=== PATIENT | female | born 2005 | race African-American/Black ===

== ENCOUNTER 2025-01-17 08:30 | Emergency (ER) | payer OTHER, SELFPAY ==
--- NOTE | ~2025-01-17 | XR_ITS ---
EXAMINATION: XR finger 2nd LT min 2V, 01/17/2025 8:45 CDT HISTORY: work injury, laceration on distal aspect of 2nd finger COMPARISON: No comparisons available. Findings: Displaced comminuted appearing fracture of the distal aspect distal phalanx. No significant degenerative changes. Soft tissues unremarkable. Impression: Fractures detailed above Reviewed, dictated and finalized at location P. Impression: Fractures detailed above
[2025-01-17 08:33] VITALS: BP 155/54; PULSE 84; RESP 16; TEMP 36.7; O2SAT 100
--- OUTSIDE RECORDS SUMMARY | 2025-01-17 08:51 | XMS_ITS | Clinical Summary ---
Author Organization [facility] Address [address] [place] [address] Care Team Providers Care Lock Maintenance Supervisor Name Role Phone None, Provider MD Primary Care Provider Unavaila ble Allergies No known active allergies Medications No known medications Social History Tobacco Use Types Packs/Day Years Used Date Smoking Tobacco: Never Smokeless Tobacco: Never Tobacco Cessation:Counseling Given: Not Answered Alcohol Use Standard Drinks/Week Comments Not Currently 0 (1 standard drink = 0.6 oz pur e alcohol) Comments Unknown Sex and Gender Information Value Date Recorded Sex Assigned at Female 08/23/2024 5:03 PM CDT Legal Sex Female 7:11 PM CDT Gender Identity Not on file Sexual Orientation Not on file Last Filed Vital Signs Vital Sign Reading Time Taken Comments Blood Pressure 124/80 08/23/2024 5:03 PM CDT Pulse 91 08/23/2024 5:03 PM CDT Temperature 36.6 C (97.8 F) 08/23/2024 5:03 PM CDT Respiratory Rate 16 08/23/2024 5:03 PM CDT Oxygen Saturation 100% 08/23/2024 5:03 PM CDT Inhaled Oxygen Concentration - - Weight 65.8 kg (145 lb) 08/23/2024 5:03 PM CDT Height 157.5 cm (5' 2) 08/23/2024 5:03 PM CDT Body Mass Index 26.52 08/23/2024 5:03 PM CDT Plan of Treatment Health Maintenance Due Date Last Done Comments Cervical Cancer Screening Pap Smear (Age 21 to 29) Every 3 Years 2003 Cervical Cancer Screening 2003 Annual Physical 12/19/2006 Meningococcal B Vaccine (2 of 2 - Bexsero SCDM 2-dose series) 10/29/2021 05/01/2021 Hepatitis C 12/19/2021 COVID-19 Vaccine ( season) 2024 Influenza Adult (#1) 2024 01/11/2008, 12/24/19 06 DTaP, Tdap and Td Vaccines (8 - Td or Tdap) 04/16/2033 04/16/2023, 12/24/2014, 01/11/2008, Additional history exists Hepatitis B Vaccines Completed 12/31/2004, 02/22/2004, 2003 Pneumococcal Vaccine: Pediatrics (0 to 5 Years) and At-Risk Patients (6 to 49 Years) Aged Out 03/18/2005, 07/02/2004, 04/22/2004, Additional history exists No longer eligible based on patient's age to complete this topic HPV Vaccines Completed 05/01/2021, 07/02/2015 Meningococcal Vaccine Completed 05/01/2021, 015 Hepatitis A Vaccines Aged Out No long er eligible based on patient's age to complete this topic RSV Immunizations Under 20 Months Aged Out No longer eligible based on patient's age to complete this topic Insurance MEDICAID [facility] Care Teams Lock Maintenance Supervisor Relationship Specialty Start Date End Date None, Provider, PCP - General UNKNOWN PHYSICIAN SPECIALTY 08/23/24
--- OUTSIDE RECORDS SUMMARY | 2025-01-17 08:51 | XMS_ITS | Clinical Summary ---
Author Organization [facility] Address [address] [place] [address] Care Team Providers Care Robot Programmer Name Role Phone Ericka Whalen MD, Robert Gannon Primary Care Provider Source Comments [facility],non-owned Affiliates and Associated Physician Practices is amultiple site organization consisting of ambulatory clinics and hospital sitesin [place], [place], [place] and [place]. This disclosure is being madepursuant to the Care Everywhere program and may not contain all information available regarding this patient. Last updated 17.[facility] [employer] Allergies No known active allergies Medications * Be aware that medications may not be up to date on this document. Alwaysverify current medications with the patient. vitamin D3-cholecalcifer ol (CHOLECACIFEROL) 1000 units tablet Take 1 tablet by mouth once daily 30 tablet 2 10/14/2018 Active Active Problems Problem Noted Date Diagnosed Date Numbness and tingling sensation of skin 10/08/19 19 Unilateral inguinal hernia 04/02/2011 Social History Tobacco Use Types Packs/Day Years Used Date Smoking Tobacco: Never Smokeless Tobacco: Never Comments No Sex and Gender Information Value Date Recorded Sex Assigned at Not on file Legal Sex Female 5:43 AM SHUTDOWN PLANNER Gender Identity Not on file Sexual Orientation Not on file Last Filed Vital Signs Vital Sign Reading Time Taken Comments Blood Pressure 112/68 10/07/2018 3:18 PM CDT Pulse 96 10/07/2018 3:18 PM CDT Temperature 36.6 C (97.8 F) 04/02/2011 1:16 PM SHUTDOWN PLANNER Respiratory Rate 17 10/07/2018 3:18 PM CDT Oxygen Saturation 100% 04/02/2011 2:00 PM SHUTDOWN PLANNER Inhaled Oxygen Concentration - - Weight 52 kg (114 lb 10.2 oz) 10/07/2018 3:18 P M CDT Height 156.3 cm (5' 1.54) 10/07/2018 3:18 PM CD T Body Mass Index 21.29 10/07/2018 3:18 PM CDT Plan of Treatment Health Maintenance Due Date Last Done Comments HIV SCREENING 12/19/2018 HPV VACCINE (1 - 3-dose series) 12/19/2018 CHLAMYDIA/GONORRHEA SCREENING 2019 MENINGOCOCCAL (Group B) VACC INE SHARED DECISION-MAKING (1 of 2 - Standard) 2019 HEPATITIS C SCREENING 12/15/2021 DTAP/TDAP/TD VACCINES (1 - Tdap) 12/19/2022 HEPATITIS B VACCINE (1 of 3 - 19+ 3-dose series) 12/19/2022 DEPRESSION SCREENING 03/22/2024 COVID-19 VACCINE (1 - 2023-2 5 season) 2024 INFLUENZA VACCINE (#1) 2024 ZOSTER VACCINE (1 of 2) 12/19/2053 HIB VACCINE Aged Out No longer eligi ble based on patient's age to complete this topic MENINGOCOCCAL GROUPS A/C/Y/W VACCINE Aged Out No longer eligible b ased on patient's age to complete this topic PNEUMOCOCCAL VACCINE Aged Out No long er eligible based on patient's age to complete this topic Insurance * Guarantor: LISETH WOLF Account Type Relation to Patient Date of Phone Billing Address Personal/Family [phone] (Home) [address] [place] [address] [facility] Care Teams Robot Programmer Relationship Specialty Start Date End Date Robert Barnett Jr., MD [address] [place], [place] [id number] PCP - General 03/10/11
--- OUTSIDE RECORDS SUMMARY | 2025-01-17 08:51 | XMS_ITS | Clinical Summary ---
Author Organization [facility] Address [address] [place] [address] Care Team Providers Care Perl Software Engineer Name Role Phone Rin Gayle MD Primary Care Provi luis Ericka Whalen MD, Robert T. Unavailable [phone] Allergies No known active allergies Medications cholecalciferol (VITAMIN D-3) 25 mcg (1,000 unit) tablet Take 1,000 Units by mouth daily 10/14/2018 Active Immunizations Immunization Administration Dates Next Due Tdap 04/16/2023 Surgical History Surgery Date Site/Laterality Comments NO PAST SURGERIES Medical History Medical History Date Comments No pertinent past medical history Family History Medical History Relation Name Comments No Known Problems Father No Known Problems Mother Relation Name Status Comments Father Mother Social History Tobacco Use Types Packs/Day Years Used Date Smoking Tobacco: Never Smokeless Tobacco: Never Alcohol Use Standard Drinks/Week Comments Never 0 (1 standard drink = 0.6 oz pur e alcohol) Personal Safety Answer Date Recorded Have you ever been in or are you currently in a harmful physical or emotional relationship or is someone making you feel afraid or unsafe? Denies 04/16/2023 Comments No Sex and Gender Information Value Date Recorded Sex Assigned at Not on file Legal Sex Female 2:47 AM POST ACUTE CARE NURSE PRACTITIONER Gender Identity Not on file Sexual Orientation Not on file Obstetrics History Last Filed Vital Signs Vital Sign Reading Time Taken Comments Blood Pressure 128/84 04/16/2023 6:34 PM POST ACUTE CARE NURSE PRACTITIONER Pulse 84 04/16/2023 6:34 PM POST ACUTE CARE NURSE PRACTITIONER Temperature 36.8 C (98.2 F) 04/16/2023 6:34 PM POST ACUTE CARE NURSE PRACTITIONER Respiratory Rate 18 04/16/2023 6:34 PM POST ACUTE CARE NURSE PRACTITIONER Oxygen Saturation 99% 04/16/2023 6:34 PM POST ACUTE CARE NURSE PRACTITIONER Inhaled Oxygen Concentration - - Weight 63.5 kg (139 lb 15.9 oz) 04/16/2023 6:34 PM POST ACUTE CARE NURSE PRACTITIONER Height 157.5 cm (5' 2) 04/16/2023 6:34 PM POST ACUTE CARE NURSE PRACTITIONER Body Mass Index 25.6 04/16/2023 6:34 PM POST ACUTE CARE NURSE PRACTITIONER Plan of Treatment Not on file Insurance [facility] Care Teams Perl Software Engineer Relationship Specialty Start Date End Date Rin Gayle MD [address] [address] PCP - General Pediatrics 09/26/19 Robert Barnett Jr., MD [address] [address] 09/26/19
--- OUTSIDE RECORDS SUMMARY | 2025-01-17 10:13 | XMS_ITS | Clinical Summary ---
Author Organization [facility] Address [address] [place] [address] Care Team Providers Care Gum Machine Filler Name Role Phone Rin Gayle MD Primary Care Provi luis Ericka Whalen MD, Robert T. Unavailable [phone] Allergies No known active allergies Medications cholecalciferol [...] on file Legal Sex Female 2:47 AM ENVIRONMENTAL HEALTH SAFETY MANAGER Gender Identity Not on file Sexual Orientation Not on file Obstetrics History Last Filed Vital Signs Vital Sign Reading Time Taken Comments Blood Pressure 128/84 04/16/2023 6:34 PM ENVIRONMENTAL HEALTH SAFETY MANAGER Pulse 84 04/16/2023 6:34 PM ENVIRONMENTAL HEALTH SAFETY MANAGER Temperature 36.8 C (98.2 F) 04/16/2023 6:34 PM ENVIRONMENTAL HEALTH SAFETY MANAGER Respiratory Rate 18 04/16/2023 6:34 PM ENVIRONMENTAL HEALTH SAFETY MANAGER Oxygen Saturation 99% 04/16/2023 6:34 PM ENVIRONMENTAL HEALTH SAFETY MANAGER Inhaled Oxygen Concentration - - Weight 63.5 kg (139 lb 15.9 oz) 04/16/2023 6:34 PM ENVIRONMENTAL HEALTH SAFETY MANAGER Height 157.5 cm (5' 2) 04/16/2023 6:34 PM ENVIRONMENTAL HEALTH SAFETY MANAGER Body Mass Index 25.6 04/16/2023 6:34 PM ENVIRONMENTAL HEALTH SAFETY MANAGER Plan of Treatment Not on file Insurance [facility] Care Teams Gum Machine Filler Relationship Specialty Start Date End Date Rin Gayle MD [address] [address] PCP - General Pediatrics 09/26/19 Robert Barnett Jr., MD [address] [address] 09/26/19
--- OUTSIDE RECORDS SUMMARY | 2025-01-17 10:13 | XMS_ITS | Clinical Summary ---
Author Organization [facility] Address [address] [place] [address] Care Team Providers Care Aix System Administrator Name Role Phone Ericka Whalen MD, Robert Gannon Primary Care Provider Source Comments [facility],non-owned Affiliates and Associated Physician Practices is amultiple site organization consisting of ambulatory clinics and hospital sitesin [place], [place]. This disclosure is being madepursuant to the Care Everywhere program and may not contain all information available regarding this patient. Last updated 17.[facility] [employer] Allergies No known active allergies Medications * [...] on file Legal Sex Female 5:43 AM INDIGO VAT TENDER CLOTH Gender Identity Not on file Sexual Orientation Not on file Last Filed Vital Signs Vital Sign Reading Time Taken Comments Blood Pressure 112/68 10/07/2018 3:18 PM CDT Pulse 96 10/07/2018 3:18 PM CDT Temperature 36.6 C (97.8 F) 04/02/2011 1:16 PM INDIGO VAT TENDER CLOTH Respiratory Rate 17 10/07/2018 3:18 PM CDT Oxygen Saturation 100% 04/02/2011 2:00 PM INDIGO VAT TENDER CLOTH Inhaled Oxygen Concentration - - Weight 52 [...] Patient Date of Phone Billing Address Personal/Family [phone] (Home) [address] [place] [address] [facility] Care Teams Aix System Administrator Relationship Specialty Start Date End Date Robert Barnett Jr., MD [address] [place], [place] [id number] PCP - General 03/10/11
--- OUTSIDE RECORDS SUMMARY | 2025-01-17 10:13 | XMS_ITS | Clinical Summary ---
Author Organization [facility] Address [address] [place] [address] Care Team Providers Care Time Signal Wirer Name Role Phone None, Provider MD Primary [...] age to complete this topic Insurance MEDICAID [facility] Care Teams Time Signal Wirer Relationship Specialty Start Date End Date None, Provider, PCP - General UNKNOWN PHYSICIAN SPECIALTY 08/23/24
--- OUTSIDE RECORDS SUMMARY | 2025-01-17 10:13 | XMS_ITS | Clinical Summary ---
Author Organization [facility] Address [address] [place] [address] Phone Care Team Providers Care Registered Nurse Teacher Name Role Phone Unavailable Primary Care Provider Unavailabl e Allergies No known active allergies Medications No known medications Social History Tobacco Use Types Packs/Day Years Used Date Smoking Tobacco: Never Tobacco Cessation:Counseling Given: Not Answered Feeling Safe Answer Date Recorded Are you in a relationship wi th someone who hurts you emotionally and/or physically? No 08/27/2024 Comments Unknown Sex and Gender Information Value Date Recorded Sex Assigned at Female 08/27/2024 11:37 AM CDT Legal Sex Female 11:35 AM CDT Gender Identity Transgender Male 08/27/2024 11:3 7 AM CDT Sexual Orientation Not on file Last Filed Vital Signs Vital Sign Reading Time Taken Comments Blood Pressure 114/81 08/27/2024 10:35 AM CDT Pulse 80 08/27/2024 10:35 AM CDT Temperature 36.7 C (98 F) 08/27/2024 10:35 AM CDT Respiratory Rate 18 08/27/2024 10:35 AM CDT Oxygen Saturation 99% 08/27/2024 10:35 AM CDT Inhaled Oxygen Concentration - - Weight 68 kg (150 lb) 08/27/2024 10:35 AM CDT Height 157.5 cm (5' 2) 08/27/2024 10:35 AM CDT Body Mass Index 27.44 08/27/2024 10:35 AM CDT Plan of Treatment Health Maintenance Due Date Last Done Comments CHLAMYDIA SCREENING (ANNUAL) 11-24 YEARS 12/19/2014 HPV VACCINES (1 - 3-dose series) 12/19/2018 DTAP/TDAP/TD VACCINES (1 - Tdap) 12/19/2022 HEPATITIS B VACCINES (1 of 3 - 19+ 3-dose series) 11/22 INFLUENZA VACCINE (#1) 2024 CERVICAL CANCER SCREENING 12/19/2024 HPV/Cotest (21-29) 12/19/2024 PAP SMEAR 12/19/2024 Insurance [employer] [facility] [employer] [id number]
--- NOTE | 2025-01-17 11:20 | PC.NURSE ---
LATE ENTRY This note is being entered to document information to the patient's record. The following information was omitted on [December], by []. EDP gave VORB for metal finger splint
[2025-01-17 11:23] VITALS: BP 130/86; PULSE 69; RESP 15; O2SAT 100
--- NOTE | 2025-01-17 11:28 | ED_ITS ---
HPI - Extremity Injury (Upper) General Chief Complaint: Extremity Injury, Upper Stated Complaint: 2nd digit injury Time Seen by Provider: 01/17/25 08:39 Source: patient Mode of arrival: ambulatory Limitations: no limitations History of Present Illness HPI narrative: 19-year-old here with a complains of laceration to the left index finger sustained prior coming to the ER , she was changing the car tire . this is work mens compensation. complaint: injury to: finger (2nd finger on the left side) Onset (ago): hour(s) (1) Place: work Severity: moderate Relieving factors: none Exacerbating factors: none Associated symptoms: denies other symptoms Related Data Allergies Allergy/AdvReac Type Severity Reaction Status Date / Time No Known Allergies Allergy Mild Verified 01/17/25 08:35 Review of Systems Review of Systems: All systems reviewed & are unremarkable except as noted in HPI and below Constitutional: Constitutional: Reports no additional constitutional complaints Eyes: Eyes: Reports no additional eye complaints ENT: Reports system reviewed and no additional complaints, except as documented Cardiovascular: Cardiovascular: Reports no additional cardiovascular complaints Respiratory: Respiratory: Reports no additional respiratory complaints Gastrointestinal: Gastrointestinal: Reports no additional gastrointestinal complaints Musculoskeletal: Musculoskeletal: Reports as per HPI Neurologic: Reports system reviewed and no additional complaints, except as documented Exam Narrative: GENERAL: Well-appearing, well-nourished, and in no acute distress. HEAD: Normocephalic, atraumatic. EYES: PERRLA and EOMI. ENT: Nares clear, no rhinorrhea or epistaxis. Mucous membranes moist. NECK: Supple. CHEST: Clear to auscultation. No respiratory distress. HEART: Regular rate and rhythm. No murmur heard. Normal peripheral pulses. EXTREMITIES: Normal range of motion. No edema. examination of the left 2 nd finger shows a laceration on the distal PIP ,involving nail with bleeding. SKIN: Warm, dry, no rash. NEURO: No focal deficits. Alert and oriented x3. PSYCH: Normal mood and affect. Course Course Emergency Course: informed pt and family about Xray findings , will place anchoring sutures , .recommended to follow with hand and plastics. Vital Signs Vital signs: Vital Signs Temperature 36.7 C 01/17/25 08:33 Pulse Rate 84 01/17/25 08:33 Respiratory Rate 16 01/17/25 08:33 Blood Pressure 155/54 H 01/17/25 08:33 Pulse Oximetry 100 01/17/25 08:33 Temperature 36.7 C 01/17/25 08:33 Pulse Rate 69 01/17/25 11:23 Respiratory Rate 15 01/17/25 11:23 Blood Pressure 130/86 01/17/25 11:23 Pulse Oximetry 100 01/17/25 11:23 Procedures Laceration Laceration 1: Date: 01/17/25 Time: 10:45 Site: other (left index finger) Description: linear Depth: simple, single layer Local Anesthetic: lidocaine 1% ====== Skin Level ====== Skin layer closed with: prolene (4) ====== Subcutaneous Layer ====== ====== Muscle Layer ====== ====== Tendon Layer ====== MDM - Extremity Injury (Upper) Differential Diagnosis Differential diagnosis: Likely finger sprain and other (laceration finger , fx finger , nail bed injury); Unlikely dislocation of finger Medical Records Attestation: I reviewed the patient's medical records. Imaging Data Radiologist's impression: ITS Impressions Finger X-Ray 01/17/25 08:57 Impression: Fractures detailed above Discharge Plan Discharge Clinical Impression: Fracture of finger of left hand Qualifiers: Encounter type: initial encounter Finger: index finger Fracture type: open Phalanx: distal Fracture alignment: displaced Qualified Code(s): S62.631B - Displaced fracture of distal phalanx of left index finger, initial encounter for open fracture Laceration of finger Qualifiers: Encounter type: initial encounter Finger: index finger Damage to nail status: with damage Foreign body presence: without foreign body Laterality: left Qualified Code(s): S61.311A - Laceration without foreign body of left index finger with damage to nail, initial encounter Patient Disposition: Home Condition: Stable Instructions: Laceration (ED), Finger Fracture (ED) Additional Instructions: Advised to take antibiotic and follow with Hand and plastic Surgery Patient Language: Burkinan Prescriptions: New cephalexin 500 mg capsule 500 mg PO Q8H 7 Days Qty: 21 0RF hydrocodone-acetaminophen 5-325 mg tablet 1 tablet PO Q8H PRN (Reason: pain) Qty: 14 0RF Follow-up/Referrals: Hu Ann MD [Physician, Plastic Surgery] Ben Hernández MD [Emergency Provider, Emergency Medicine] PHYSICIAN,MEDICAL IMAGING SPECIALIST [Primary Care Provider, Internal Medicine] Time of Disposition: 11:46
[2025-01-17 12:25] VITALS: BP 126/83; PULSE 86; RESP 16; TEMP 36.7; O2SAT 99
== END 2025-01-17 12:25 | disposition home or self-care (01) ==
PROVIDERS: Emergency Provider Family Medicine
DX: S62.631B Displaced fracture of distal phalanx of left index finger, initial encounter for open fracture (principal); X58.XXXA Exposure to other specified factors, initial encounter
CPT/HCPCS: 12001; 29130; 73140; 99283; 99284; J2003

== ENCOUNTER 2025-02-01 05:56 | Day surgery (SDC) | payer OTHER, SELFPAY ==
--- NOTE | ~2025-02-01 | XR_ITS ---
EXAM/PROCEDURE: XR surgery orthopedic HISTORY: CL REDUCTION PERC PINNING LEFT 2ND FINGER COMPARISON: None available. TECHNIQUE: Fluoroscopic images FINDINGS: Pinning of the left second digit distal phalanx through the distal interphalangeal joint noted. IMPRESSION: Fluoroscopic images as above. See also operative/surgical notes for complete details. Reviewed, dictated and finalized at location A. TRONIC WARFARE LINGUIST IMPRESSION: Fluoroscopic images as above. See also operative/surgical notes for complete de tails.
[2025-02-01 06:18] VITALS: BP 122/68; PULSE 88; RESP 15; TEMP 37; O2SAT 100
[2025-02-01] MEDS: ACETAMINOPHEN 500 MG TABLET 1000 MG PO (06:20)
[2025-02-01] MEDS: LACTATED RINGERS 1,000 ML 30 ML IV CONT (06:21)
--- NOTE | 2025-02-01 06:51 | P.OP_ITS ---
Procedure Note - Detailed Date of Procedure 02/01/25 Pre-op Diagnosis Left index finger Distal Phalanx Fracture Post-op Diagnosis Same Procedure Performed left index finger p3 crpp Surgeon Beatriz Smiley MD Show Card Letterer Sherry Harley PA-C Anesthesia MAC Description of Procedure INFORMED CONSENT: The patient was seen and examined and marked in the pre-op area.? The patient signed the consent form. PROCEDURE IN DETAIL:The patient taken back to OR on the stretcher in supine position. Time out performed with anesthesia, surgeon and staff agreeing on patient's name site and surgery to be performed SCDs were placed on the lower extremities and inflated. A tourniquet was placed on {left} upper extremity and antibiotics given IV After anesthesia administered sedation I injected {4}cc 1%lido and 0.5% marcaine plain for digital block in the palm I proceeded with removal of her sutures. The?{left upper extremity}?was prepped and draped in sterile fashion the??{left upper extremity} was? exsanguinated with Esmarch bandage and tourniquet inflated to 250mmHg Mini C-arm was draped and brought into the field where the fracture was evaluated on multiple views. I was able to achieve reasonable reduction with manipulation though this was unstable. I proceeded with placing a 0.045 K-wire in retrograde fashion across the fracture fragment into the distal phalanx and across the DIP joint. Wire position and reduction was verified on multiple views of fluoroscopy. The K-wire was trimmed just below the skin. A dressing of xeroform, 4x4, jo-ann, and a radial gutter splint was applied for patient safety, security, and comfort and secured with an sloane bandage after the tourniquet was let down noting the hand was warm and well perfused. The patient was then awaken from anesthesia and transferred to the recovery room in stable condition.? Complications - none EBL- 0cc Disposition - home in stable condition Sherry Harley PA-C was essential for positioning, fluoro, and dressing placement. [facility] Billing Surgery - Charge Forward: Surgery Billing ([id number] for sherry)
--- NOTE | 2025-02-01 06:51 | WPDHPUPDATE1 ---
History and Physical Update Update Date/Time: 02/01/25 06:51 Patient seen and examined in pre-operative holding area. No interval change in medical history or symptoms. Patient recalls previous discussion of benefits and alternatives to procedure. Continues to desire to proceed with closed possible open reduction and pin fixation left index finger distal phalanx fracture . Reviewed procedure, post-op expectations and risks including but not limited to bleeding, infection, injury to tendon/nerve/vessel, decreased hand function, stiffness, RSD, no change or worsening of symptoms, malunion, nonunion. I discussed the possible use of assistants and their participation in the case. Patient stated understanding and signed the consent form wishing to proceed.
--- NOTE | 2025-02-01 07:15 | P.PNAN_ITS ---
Anes - Initial Pre Proc Eval Procedure: Operation Date: 02/01/25 07:30 Proposed Procedures p Closed Reduction Percutaneous Pinning Left Index Finger - Beatriz Smiley MD Date/Time: 02/01/25 07:15 Surgeon: Beatriz Smiley MD Pre Op Diagnosis: Left Distal Phalanx Fracture Patient Data Age: 19 Gender: F Height: 1.57 m Weight: 68.2 kg Last Vital Signs Temp 98.6 F 02/01/25 06:18 Pulse 88 02/01/25 06:18 Resp 15 02/01/25 06:18 BP 122/68 02/01/25 06:18 Pulse Ox 100 02/01/25 06:18 O2 Del Method Room Air 02/01/25 06:18 Allergies Allergy/AdvReac Type Severity Reaction Status Date / Time No Known Allergies Allergy Mild Verified 02/01/25 06:15 Home Medications ?Medication ?Instructions ?Recorded ?Confirmed ?Type cephalexin 500 mg capsule 500 mg PO Q8H #21 caps 02/01 Rx hydrocodone 5 mg-acetaminophen 325 1 tablet PO Q6H PRN pain #8 tabs 02/01/25 Rx mg tablet Patient hx anesthesia problems: none Family hx anesthesia problems: none Results Review: All pre-operative results and documents have been reviewed as part of the pre- operative evaluation. [facility] Social History Social History Smoking status: Never smoker Second hand tobacco smoke exposure: No Alcohol intake: current Alcohol use details: RARELY Substance use: never Substance use type: does not use Living arrangements: with roommate(s) Spiritual care concerns: No Anes - Eval Final PreProcedure Day of Procedure 02/01/25 07:15 Heart: regular rate and rhythm Lungs: clear to auscultation Airway: Mallampati scale class II Neurological: alert and oriented Last oral intake: >/= 8 hours ASA classification: II Anesthetic plan: proceed Anesthesia type and monitoring: monitored anesthesia care Results Review: All pre-operative results and documents have been reviewed as part of the pre- operative evaluation. Informed Consent: The patient's anesthetic plan and its attendant risks and benefits were discussed with the patient/family/POA. Questions were solicited and answers provided to the satisfaction of the patient/family/POA.
[2025-02-01] MEDS: ceFAZolin SODIUM 2 GM/20 ML SW SYRINGE IV PUSH (07:34)
[2025-02-01 08:01] VITALS: BP 106/65; PULSE 86; RESP 14; O2SAT 98
[2025-02-01] MEDS: LIDOCAINE 1% LOCAL INJ 10 ML VIAL 5 ML INFILTRATE (08:13)
[2025-02-01] MEDS: BUPivacaine HCL 0.5% 10 ML AMP 5 ML INFILTRATE (08:14)
[2025-02-01 08:30] VITALS: BP 113/74; PULSE 78; RESP 16; O2SAT 100
== END 2025-02-01 08:48 | disposition home or self-care (01) ==
LOC: ASC 06:02
PROVIDERS: Visit Provider Plastic Surgery
PROC: (CPT 26756; principal; 2025-02-01 07:30)
DX: S62.631A Displaced fracture of distal phalanx of left index finger, initial encounter for closed fracture (principal); W23.0XXA Caught, crushed, jammed, or pinched between moving objects, initial encounter
CPT/HCPCS: 26756; 99199

== ENCOUNTER 2025-02-12 12:43 | Outpatient (CLI) | payer OTHER, SELFPAY ==
--- NOTE | ~2025-02-12 | XR_ITS ---
EXAMINATION: XR finger 2nd LT min 2V, 02/12/2025 13:11 DIAMOND SIZER AND SORTER HISTORY: S62.631A - Displaced fracture of distal phalanx of left i... COMPARISON: No comparisons available. Findings: Postsurgical changes with fixation of the distal phalanx second digit and the distal interphalangeal joint. No significant degenerative changes. Soft tissues unremarkable. Impression: Postsurgical changes, healing fracture Reviewed, dictated and finalized at location P. OND SIZER AND SORTER Impression: Postsurgical changes, healing fracture
--- OUTSIDE RECORDS SUMMARY | 2025-02-12 14:55 | XMS_ITS | Clinical Summary ---
Author Organization [facility] Address [address] [place] [id number] Care Team Providers Care Upholstery Repairer Name Role Phone None, Provider MD Primary [...] age to complete this topic Insurance MEDICAID [facility] Care Teams Upholstery Repairer Relationship Specialty Start Date End Date None, Provider, PCP - General UNKNOWN PHYSICIAN SPECIALTY 08/23/24
--- OUTSIDE RECORDS SUMMARY | 2025-02-12 14:55 | XMS_ITS | Clinical Summary ---
Author Organization [facility] Address [address] [place] [address] Phone Care Team Providers Care Stone Mill Operator Name Role Phone Unavailable Primary Care Provider [...] HPV/Cotest (21-29) 12/19/2024 PAP SMEAR 12/19/2024 Insurance [facility] [id number]
--- OUTSIDE RECORDS SUMMARY | 2025-02-12 14:55 | XMS_ITS | Clinical Summary ---
Author Organization [facility] Address [address] [place] [address] Care Team Providers Care Return Clerk Name Role Phone Ericka Whalen MD, Robert Gannon Primary Care Provider Source Comments [facility],non-owned Affiliates and Associated Physician Practices is amultiple site organization consisting of ambulatory clinics and hospital sitesin [place], [place], [place]. This disclosure is being madepursuant to the Care Everywhere program and may not contain all information available regarding this patient. Last updated 17.[facility] [address] Allergies No known active allergies Medications * [...] on file Legal Sex Female 5:43 AM TALENT AGENT Gender Identity Not on file Sexual Orientation Not on file Last Filed Vital Signs Vital Sign Reading Time Taken Comments Blood Pressure 112/68 10/07/2018 3:18 PM CDT Pulse 96 10/07/2018 3:18 PM CDT Temperature 36.6 C (97.8 F) 04/02/2011 1:16 PM TALENT AGENT Respiratory Rate 17 10/07/2018 3:18 PM CDT Oxygen Saturation 100% 04/02/2011 2:00 PM TALENT AGENT Inhaled Oxygen Concentration - - Weight 52 kg (114 lb 10.2 oz) 10/07/2018 3:18 PM CDT Height 156.3 cm (5' 1.54) 10/07/2018 [...] DEPRESSION SCREENING 03/22/2024 COVID-19 VACCINE (1 - 2024-2 6 season) 2024 INFLUENZA VACCINE (#1) 2024 ZOSTER [...] Patient Date of Phone Billing Address Personal/Family [phone] (Home) [address] [place] [address] [facility] Care Teams Return Clerk Relationship Specialty Start Date End Date Robert Barnett Jr., MD [address] [place], [place] [id number] PCP - General 03/10/11
--- OUTSIDE RECORDS SUMMARY | 2025-02-12 14:55 | XMS_ITS | Clinical Summary ---
Author Organization [facility] Address [address] [place] [address] Care Team Providers Care Network Liaison Name Role Phone Rin Gayle MD Primary Care Provi luis Ericka Whalen MD, Robert T. Unavailable [phone] Allergies No known active allergies Medications cholecalciferol [...] on file Legal Sex Female 2:47 AM ELECTRONIC TECHNOLOGIST Gender Identity Not on file Sexual Orientation Not on file Last Filed Vital Signs Vital Sign Reading Time Taken Comments Blood Pressure 128/84 04/16/2023 6:34 PM ELECTRONIC TECHNOLOGIST Pulse 84 04/16/2023 6:34 PM ELECTRONIC TECHNOLOGIST Temperature 36.8 C (98.2 F) 04/16/2023 6:34 PM ELECTRONIC TECHNOLOGIST Respiratory Rate 18 04/16/2023 6:34 PM ELECTRONIC TECHNOLOGIST Oxygen Saturation 99% 04/16/2023 6:34 PM ELECTRONIC TECHNOLOGIST Inhaled Oxygen Concentration - - Weight 63.5 kg (139 lb 15.9 oz) 04/16/2023 6:34 PM ELECTRONIC TECHNOLOGIST Height 157.5 cm (5' 2) 04/16/2023 6:34 PM ELECTRONIC TECHNOLOGIST Body Mass Index 25.6 04/16/2023 6:34 PM ELECTRONIC TECHNOLOGIST Plan of Treatment Not on file Insurance [facility] Care Teams Network Liaison Relationship Specialty Start Date End Date Rin Gayle MD [address] [id number] PCP - General Pediatrics 09/26/19 Robert Barnett Jr., MD [address] [address] 09/26/19
== END 2025-02-12 12:44 | disposition home or self-care (01) ==
PROVIDERS: Visit Provider Physician Assistant Surgical
DX: S62.631D Displaced fracture of distal phalanx of left index finger, subsequent encounter for fracture with routine healing (principal)
CPT/HCPCS: 73140

== ENCOUNTER 2025-02-26 13:03 | Outpatient (CLI) | payer OTHER, SELFPAY ==
--- NOTE | ~2025-02-26 | XR_ITS ---
EXAMINATION: XR finger 2nd LT min 2V, 02/26/2025 13:30 DRY COLOR MIXER HISTORY: S62.631A - Displaced fracture of distal phalanx of left i... COMPARISON: No comparisons available. Findings: Fixation of the second distal interphalangeal joint with healing fractures. No significant degenerative changes. Soft tissues unremarkable. Impression: Postsurgical changes Reviewed, dictated and finalized at location P. COLOR MIXER Impression: Postsurgical changes
== END 2025-02-26 13:04 | disposition home or self-care (01) ==
PROVIDERS: Visit Provider Physician Assistant Surgical
DX: S62.631D Displaced fracture of distal phalanx of left index finger, subsequent encounter for fracture with routine healing (principal); Z96.698 Presence of other orthopedic joint implants; X58.XXXD Exposure to other specified factors, subsequent encounter
CPT/HCPCS: 73140

== ENCOUNTER 2025-03-05 12:50 | Outpatient (CLI) | payer OTHER, SELFPAY ==
--- NOTE | ~2025-03-05 | XR_ITS ---
EXAMINATION: XR finger 2nd LT min 2V, 03/05/2025 13:08 RAW MATERIAL PLANNER HISTORY: S62.631A - Displaced fracture of distal phalanx of left i... COMPARISON: No comparisons available. Findings: There is a healing fracture of the distal aspect distal phalanx. No significant degenerative changes. Soft tissues unremarkable. Impression: Healing fracture Reviewed, dictated and finalized at location P. MATERIAL PLANNER Impression: Healing fracture
== END 2025-03-05 12:51 | disposition home or self-care (01) ==
PROVIDERS: PCP Physician Assistant Surgical; Visit Provider Physician Assistant Surgical
DX: S62.631A Displaced fracture of distal phalanx of left index finger, initial encounter for closed fracture (principal); X58.XXXA Exposure to other specified factors, initial encounter
CPT/HCPCS: 73140